=== PATIENT | male | born 1945 | race Caucasian/White ===

== ENCOUNTER 2017-03-20 04:13 | Emergency (ER) | payer OTHER ==
[~2017-03-20] VITALS: Ht 177.8 cm; Wt 108.9 kg
--- NOTE | ~2017-03-20 | EKG ---
[address] [place] [address] ELECTROCARDIOGRAM REPORT Name: VITALY WALLIS Room [facility]: [id number] Admission: 03/20/17 Attend Phys: Discharge: 03/20/17 Date of : 49 Report #: [id number] THIS REPORT FOR: //name// [facility] ED Test Date: 2017-03-20 Test Time: 04:35:34 Pat Name: VITALY WALLIS Department: Room: Gender: M Buffer Automatic: Ambrose REY : 1945 Requested By: Pedro Hernandez Order Number: [id number] MD: Reed Cowan Measurements Intervals [place] Rate: 66 P: 40 CO: 60 QRS: -38 QRSD: 105 T: 0 QT: 414 QTc: 434 Interpretive Statements Sinus rhythm Inferior infarct, old Compared to ECG 02/22/2006 17:48:26 No significant change was found Electronically Signed On 03-21-2017 7:45:12 CDT by Reed Cowan [email or web address] <ELECTRONICALLY SIGNED> By: Reed Cowan MD, [facility] 03/21/17 0745 [id number] Reed Cwoan MD, FACC /EPI
[~2017-03-20 04:13] MED LIST: ALLOPURINOL 30300 M2 PO; ASPIRIN81 M2 PO; CRESTOR10 MG PO; FISH OIL 1,001000 M2 PO; GLUCOPHAGE1000 MG PO; LANTUS100 UNIT/M SUBQ; LISINOPRIL20 MG PO; LOPRESSOR25 PO; NOVOLOG100 UNIT/1 SUBQ; PERCOCET 5-3251 EACH PO; SLO-NIACIN500 MG PO; TAMSULOSIN HCL0.4 MG PO; UNICOMPLEX M TA1 TA1 PO; VITAMIN D1000 UNI1 PO; ZOFRAN ODT4 MG PO
[2017-03-20 04:31] LABS: ABSOLUTE NEUTROPHILS 10.6 thou/uL (1.4-8.2); BASOPHILS 0.3 % (0.0-2.0); EOSINOPHILS 0.7 % (0.0-3.0); HEMATOCRIT 40.5 % (42.0-52.0); HEMOGLOBIN 13.8 gm/dL (14.0-18.0); LYMPHOCYTES 14.4 % (24.0-44.0); MCH 30.5 pg (26.0-34.0); MCHC 34.2 g/dL (28.0-37.0); MONOCYTES 5.1 % (1.0-8.0); PLATELET COUNT 275 thou/uL (150-400); POLYS 79.5 % (36.0-66.0); RBC 4.54 mil/uL (4.50-6.00); RDW 13.9 % (10.5-14.5); WBC 13.4 thou/uL (4.0-11.0)
[2017-03-20 04:39] LABS: MANUAL DIFF NO
[2017-03-20 04:43] LABS: ANION GAP 16 mmol/L (7-16); BUN 12 mg/dL (7-18); CALCIUM 9.8 mg/dL (8.5-10.1); CHLORIDE 106 mmol/L (98-107); CO2 23 mmol/L (21-32); CREATININE 1.8 mg/dL (0.7-1.3); GLUCOSE 227 mg/dL (74-106); POTASSIUM 3.3 mmol/L (3.5-5.1); SODIUM 145 mmol/L (136-145)
[2017-03-20 04:56] LABS: ALBUMIN 3.9 g/dL (3.4-5.0); ALKALINE PHOSPHATASE 92 U/L (46-116); SGOT 24 U/L (15-37); SGPT 28 U/L (30-65); TOTAL BILIRUBIN 0.6 mg/dL (<0.1-1.0); TOTAL PROTEIN 7.6 g/dL (6.4-8.2); TROPONIN-I < 0.04 ng/mL (<0.04-0.07)
[2017-03-20] MEDS ORDERED: FLOMAX0.4 MG PO (06:01)
[2017-03-20] MEDS ORDERED: TORADOL 10 MG T10 MG PO (06:01)
[2017-03-20] MEDS ORDERED: NORCO 5-325 TA1 EACH PO (06:01)
[2017-03-20] MEDS ORDERED: ZOFRAN ODT8 MG PO (06:01)
[2017-03-20 06:58] LABS: URINE BILIRUBIN NEGATIVE (Negative); URINE BLOOD 3+ (Negative); URINE COLOR YELLOW; URINE GLUCOSE-RANDOM* 2+ (Negative); URINE KETONES TRACE (Negative); URINE LEUKOCYTES-REFLEX NEGATIVE (Negative); URINE PROTEIN (DIPSTICK) 1+ (Negative); URINE SPECIFIC GRAVITY 1.025 (1.003-1.035); URINE UROBILINOGEN 0.2 E.U./dl (0.2-1.0)
[2017-03-20 06:59] VITALS: BP 147/72
[2017-03-20 07:59] LABS: CASTS None Seen /LPF (None Seen); CRYSTALS None Seen /LPF (None Seen); SQUAMOUS 0-3 Few /LPF (0-3); URINE RBC 0-2 Rare /HPF (0-2); URINE WBC-REFLEX None Seen /HPF (0-5)
== END 2017-03-20 06:04 | disposition home or self-care (01) ==
LOC: ER 04:13
PROVIDERS: Emergency Medicine
DX: R10.9 Unspecified abdominal pain (principal); E87.6 Hypokalemia; E11.65 Type 2 diabetes mellitus with hyperglycemia; I10 Essential (primary) hypertension; E78.5 Hyperlipidemia, unspecified; Z87.442 Personal history of urinary calculi; Z95.5 Presence of coronary angioplasty implant and graft; Z79.4 Long term (current) use of insulin